=== PATIENT | male | born 1960 | race Caucasian/White ===

== ENCOUNTER 2018-04-21 17:22 | Inpatient (IN) | payer OTHER, MEDICARE ==
[~2018-04-21] VITALS: Ht 177.8 cm; Wt 75.0 kg
[2018-04-21 17:51] VITALS: BP 186/102; PULSE 85; RESP 18; TEMP 99; O2SAT 97
[2018-04-21] MEDS ORDERED: oxyCODONE/ACETAMINOPHEN 5 MG/325 MG TAB PO ONE (18:00)
--- NOTE | 2018-04-21 18:16 | PD ---
HPI Chief Complaint: Psychiatric Symptoms Time Seen by Provider: 17:56 Travel History International Travel<30 days: No Contact w/Intl Traveler<30days: No Traveled to known affect area: No History of Present Illness HPI Patient is a 58-year-old male presenting to the emergency department under Veloz act for psychiatric evaluation. Per the Veloz act report patient called his doctor's office and threatened suicide by shooting himself because he was frustrated he was not getting his medications. The Veloz act reported controlled substance however patient was requesting gabapentin. He states he had waited 2 days prior for the medication to be refilled. He denies any suicidal homicidal ideations. He states he was just frustrated and stated it. He does have access to firearms. He denies any psychiatric history. He does have a history of chronic neck and back pain. Symptom onset was gradual, symptoms are moderate in nature. PFSH Past Medical History Asthma: No Musculoskeletal: Yes (Chronic neck and back pain) Social History Tobacco Use: Yes Allergies-Medications (Allergen,Severity, Reaction): Coded Allergies: No Known Allergies (Verified Allergy, Unknown, 07/25/03) Uncoded Allergies: NKA (Allergy, Unknown, 07/26/03) Review of Systems Except as stated in HPI: all other systems reviewed are Neg Psychiatric: Positive: Suicidal Ideations Physical Exam Narrative GENERAL: Thin, well-developed, alert elderly male. Presenting in no acute distress. SKIN: Warm and dry. HEAD: Atraumatic. Normocephalic. EYES: Pupils equal and round. No scleral icterus. No injection or drainage. ENT: No nasal bleeding or discharge. Mucous membranes pink and moist. NECK: Trachea midline. No JVD. CARDIOVASCULAR: Regular rate and rhythm. RESPIRATORY: No accessory muscle use. Clear to auscultation. Breath sounds equal bilaterally. GASTROINTESTINAL: Abdomen soft, non-tender, nondistended. Hepatic and splenic margins not palpable. MUSCULOSKELETAL: Extremities without clubbing, cyanosis, or edema. No obvious deformities. NEUROLOGICAL: Awake and alert. No obvious cranial nerve deficits. Motor grossly within normal limits. Five out of 5 muscle strength in the arms and legs. Normal speech. PSYCHIATRIC: Appropriate mood and affect; insight and judgment normal. Data Data Last Documented VS Vital Signs Date Time Temp Pulse Resp B/P (MAP) Pulse Ox O2 Delivery O2 Flow Rate FiO2 04/21/18 17:51 99.0 85 18 186/102 (130) 97 Orders Orders Complete Blood Count With Diff (04/21/18 17:56) Comprehensive Metabolic Panel (04/21/18 17:56) Thyroid Stimulating Hormone (04/21/18 17:56) Urinalysis - C+S If Indicated (04/21/18 17:56) Psych Screen (04/21/18 17:56) Drug Screen, Random Urine (04/21/18 17:56) Alcohol (Ethanol) (04/21/18 17:56) Oxycodone-Acetamin 5-325 Mg (Percocet (04/21/18 18:00) Labs Laboratory Tests Test 04/21/18 17:58 White Blood Count 6.4 TH/MM3 Red Blood Count 5.11 MIL/MM3 Hemoglobin 15.1 GM/DL Hematocrit 45.0 % Mean Corpuscular Volume 88.0 FL Mean Corpuscular Hemoglobin 29.5 PG Mean Corpuscular Hemoglobin Concent 33.5 % Red Cell Distribution Width 13.8 % Platelet Count 213 TH/MM3 Mean Platelet Volume 8.4 FL Neutrophils (%) (Auto) 65.4 % Lymphocytes (%) (Auto) 26.2 % Monocytes (%) (Auto) 6.8 % Eosinophils (%) (Auto) 1.0 % Basophils (%) (Auto) 0.6 % Neutrophils # (Auto) 4.2 TH/MM3 Lymphocytes # (Auto) 1.7 TH/MM3 Monocytes # (Auto) 0.4 TH/MM3 Eosinophils # (Auto) 0.1 TH/MM3 Basophils # (Auto) 0.0 TH/MM3 CBC Comment DIFF FINAL Differential Comment Blood Urea Nitrogen 11 MG/DL Creatinine 1.28 MG/DL Random Glucose 110 MG/DL Total Protein 8.1 GM/DL Albumin 4.1 GM/DL Calcium Level 9.6 MG/DL Alkaline Phosphatase 122 U/L Aspartate Amino Transf (AST/SGOT) 26 U/L Alanine Aminotransferase (ALT/SGPT) 41 U/L Total Bilirubin 0.6 MG/DL Sodium Level 140 MEQ/L Potassium Level 4.0 MEQ/L Chloride Level 105 MEQ/L Carbon Dioxide Level 23.6 MEQ/L Anion Gap 11 MEQ/L Estimat Glomerular Filtration Rate 57 ML/MIN Thyroid Stimulating Hormone 3rd Gen 1.230 uIU/ML Ethyl Alcohol Level LESS THAN 3 MG/DL MDM Medical Decision Making Medical Screen Exam Complete: Yes Emergency Medical Condition: Yes Interpretation(s) Laboratory Tests Test 04/21/18 17:58 White Blood Count 6.4 TH/MM3 Red Blood Count 5.11 MIL/MM3 Hemoglobin 15.1 GM/DL Hematocrit 45.0 % Mean Corpuscular Volume 88.0 FL Mean Corpuscular Hemoglobin 29.5 PG Mean Corpuscular Hemoglobin Concent 33.5 % Red Cell Distribution Width 13.8 % Platelet Count 213 TH/MM3 Mean Platelet Volume 8.4 FL Neutrophils (%) (Auto) 65.4 % Lymphocytes (%) (Auto) 26.2 % Monocytes (%) (Auto) 6.8 % Eosinophils (%) (Auto) 1.0 % Basophils (%) (Auto) 0.6 % Neutrophils # (Auto) 4.2 TH/MM3 Lymphocytes # (Auto) 1.7 TH/MM3 Monocytes # (Auto) 0.4 TH/MM3 Eosinophils # (Auto) 0.1 TH/MM3 Basophils # (Auto) 0.0 TH/MM3 CBC Comment DIFF FINAL Differential Comment Blood Urea Nitrogen 11 MG/DL Creatinine 1.28 MG/DL Random Glucose 110 MG/DL Total Protein 8.1 GM/DL Albumin 4.1 GM/DL Calcium Level 9.6 MG/DL Alkaline Phosphatase 122 U/L Aspartate Amino Transf (AST/SGOT) 26 U/L Alanine Aminotransferase (ALT/SGPT) 41 U/L Total Bilirubin 0.6 MG/DL Sodium Level 140 MEQ/L Potassium Level 4.0 MEQ/L Chloride Level 105 MEQ/L Carbon Dioxide Level 23.6 MEQ/L Anion Gap 11 MEQ/L Estimat Glomerular Filtration Rate 57 ML/MIN Thyroid Stimulating Hormone 3rd Gen 1.230 uIU/ML Ethyl Alcohol Level LESS THAN 3 MG/DL Vital Signs Date Time Temp Pulse Resp B/P (MAP) Pulse Ox O2 Delivery O2 Flow Rate FiO2 04/21/18 17:51 99.0 85 18 186/102 (130) 97 Differential Diagnosis Mood disorder versus substance abuse versus psychosis versus metabolic abnormality versus other Narrative Course Patient is a 58-year-old male presenting under Veloz act for psychiatric evaluation secondary to making suicidal as well as homicidal statements to his doctor's office. Mental health screening discussed with the patient. Psychiatric screen ordered. Patient's vital signs are stable, he will be given a Percocet for his chronic pain. Labs reviewed, no acute findings identified. Patient is medically clear for psychiatric evaluation. Diagnosis Primary Impression: Medical clearance for psychiatric admission Condition: Stable Amanda Mazariegos Apr 21, 2018 18:16
[2018-04-21 18:36] LABS: AUTOMATED NEUTROPHIL # 4.2 TH/MM3 (1.8-7.7); BASOPHIL % 0.6 % (0.0-2.0); EOSINOPHIL # 0.1 TH/MM3 (0-0.4); HEMOGLOBIN 15.1 GM/DL (13.0-17.0); LYMPH % 26.2 % (9.0-44.0); LYMPHOCYTE # 1.7 TH/MM3 (1.0-4.8); MEAN CORPUSCULAR HEMOGLOBIN 29.5 PG (27.0-34.0); MEAN CORPUSCULAR HGB CONC 33.5 % (32.0-36.0); MEAN PLATELET VOLUME 8.4 FL (7.0-11.0); MONO % 6.8 % (0.0-8.0); MONOCYTE # 0.4 TH/MM3 (0-0.9); NEUT % 65.4 % (16.0-70.0); PLATELET COUNT 213 TH/MM3 (150-450); RED BLOOD COUNT 5.11 MIL/MM3 (4.50-5.90); RED CELL DISTRIBUTION WIDTH 13.8 % (11.6-17.2); WHITE BLOOD COUNT 6.4 TH/MM3 (4.0-11.0)
[2018-04-21 18:50] LABS: ALBUMIN 4.1 GM/DL (3.4-5.0); AST (GOT) 26 U/L (15-37); BICARBONATE 23.6 MEQ/L (21.0-32.0); BLOOD UREA NITROGEN 11 MG/DL (7-18); CALCIUM 9.6 MG/DL (8.5-10.1); CHLORIDE 105 MEQ/L (98-107); CREATININE 1.28 MG/DL (0.60-1.30); GLOMERULAR FILTRATION RATE 57 ML/MIN (>89); GLUCOSE,RANDOM 110 MG/DL (74-106); SODIUM (NA) 140 MEQ/L (136-145)
[2018-04-21 18:51] LABS: ALT (GPT) 41 U/L (12-78)
[2018-04-21 19:01] LABS: ALKALINE PHOSPHATASE 122 U/L (45-117); TOTAL BILIRUBIN ADULT 0.6 MG/DL (0.2-1.0); TOTAL PROTEIN 8.1 GM/DL (6.4-8.2)
[2018-04-21] MEDS ORDERED: OXYC15TA PO (19:06)
[2018-04-21] MEDS ORDERED: GABA400C5 PO (19:06)
[2018-04-21] MEDS ORDERED: LISI-515 PO (19:06)
[2018-04-21 22:40] LABS: BILIRUBIN, URINE NEG (NEG); BLOOD, URINE TRACE (NEG); GLUCOSE,URINE NEG (NEG); KETONE, URINE NEG (NEG); NITRITE,URINE NEG (NEG); URINE COLOR LIGHT-YELLOW (YELLW/STRAW); URINE LEUKOCYTE ESTERASE NEG (NEG)
[2018-04-22 00:55] VITALS: BP 137/79; PULSE 58; RESP 18; TEMP 98; O2SAT 96
[2018-04-22] MEDS ORDERED: ACETAMINOPHEN 325 MG TAB PO ONE (01:00)
[2018-04-22 06:25] VITALS: BP_SYST 116; BP_SYST 130; BP_DIAS 68; BP_DIAS 81; PULSE 56; PULSE 82; RESP 16; RESP 18; TEMP 97.3; TEMP 98; O2SAT 99
[2018-04-22] MEDS: GABAPENTIN 400 MG CAP PO SCH ×4 (08:44→21:44)
[2018-04-22] MEDS ORDERED: GABAPENTIN 400 MG CAP PO SCH (08:45)
[2018-04-22 11:00] VITALS: BP 128/75; PULSE 62; RESP 16; TEMP 98.7; O2SAT 97
[2018-04-22] MEDS ORDERED: ACETAMINOPHEN 325 MG TAB PO PRN (15:00)
[2018-04-22] MEDS ORDERED: MAGNESIUM HYDROXIDE SUSP 30 ML CUP PO PRN (15:00)
[2018-04-22] MEDS ORDERED: ALUMINUM/MAGNESIUM/SIMETH 30 ML CUP PO PRN (15:00)
--- NOTE | 2018-04-22 15:03 | PD ---
History of Present Illness Chief Complaint: Psychiatric Symptoms Time Seen by Provider: 14:25 Travel History International Travel<30 Days: No Contact w/Intl Traveler<30days: No Known affected area: No Legal Status Legal Status: Veloz Act Veloz Act Signed By: DR SHANEL CARRINGTON History of Present Illness: History of Present Illness HPI Patient is a 58-year-old, male with history of bipolar disorder, substance use disorder, antisocial personality disorder, presenting to the emergency department under Veloz act initiated by Dr. Shanel Friedman. The Veloz act report states" patient is continuously requesting controlled substances and stated he will kill himself he he if he does not get them or take a gun and shoot someone." It appears the patient called his doctor's office and made the above threatens when he was unable to get his medications refilled. As per ED documentation the patient does have access to firearms. The patient has been monitored here in secure environment. The patient has been irritable and restless. He was provided pain medication as well as Neurontin by ED provider. EMR is reviewed. The patient has had psychiatric admissions at [facility] dating back to 2001. He was last admitted in May [address] Farias and Dr. Griffiths's notes. Current toxicology is positive for cocaine. Patient is seen in [facility]. His mood is irritable, easily agitated. He states he is 'sad and depressed 'because he is not able to get his pain medication. He is demanding on getting OxyContin and becomes agitated when he is informed that he will not be able to get that prescription here in the ED. He then states do whatever the hell you want to do. I just will bash my head against the wall. I will just stay in this room and I am not answer any more questions. I'm not going to eat , not going do nothing. Just leave me the fuck alone". Patient also begins to pace in the hallway and states that he is going to try to leave the hospital anyway he can. I made several attempts to discuss matters further with the patient but he remained agitated and uncooperative. PFSH Past Medical History Asthma: No Depression: Yes Diminished Hearing: No Hypertension: Yes Musculoskeletal: Yes (Chronic neck and back pain) ?: Not Psychiatric History Psychiatric History Hx Psychiatric Treatment: REPORTS THAT IT HAS BEEN A LONG TIME SINCE HE HAS BEEN HOSPITALIZED FOR PSYCHIATRIC PROBLEMS. HE WAS HERE IN 2001 AND 2003. HAS BEEN DIAGNOSED WITH BIPOLAR disorder. He states that he has been receiving Neurontin from Dr. Pepper for mood swings. History of Inpatient Treatment: Yes Guns or firearms in home: Yes Social History Patient refuses to provide any information. He indicated to the nurses that he is currently living with his mother. Hx Alcohol Use: No Hx Tobacco Use: Yes Hx Substance Use: Yes Substance Use Type: Cocaine (Positive toxicology but denies current use) Other Substances Used: HAS BEEN USING DRUGS SINCE AGE 14 (BOTH LEGAL AND NONLEGAL) Hx of Substance Use Treatment: No Family Psychiatric History Unknown Allergies-Medications (Allergen,Severity, Reaction): Coded Allergies: No Known Allergies (Verified Allergy, Unknown, 07/25/03) Uncoded Allergies: NKA (Allergy, Unknown, 07/26/03) Reported Meds & Prescriptions Reported Meds & Active Scripts Active Reported Oxycodone (Oxycodone HCl) 15 Mg Tab 15 Mg PO Q6HR Lisinopril 20 Mg Tab 20 Mg PO DAILY Gabapentin 400 Mg Cap 400 Cap PO Q8HR Review of Systems Musculoskeletal: COMPLAINS OF: Stiffness, Back pain, Neck pain Psychiatric: COMPLAINS OF: Mood changes, Agitation, Suicidal Ideation, Homicidal Ideation Mental Status Examination Appearance: Appropriate (In [facility]) Consciousness: Alert Orientation: x4 Motor Activity: Normal gait Speech: Rapid Language: Adequate Fund of Knowledge: Adequate Attention and Concentration: Easily Distracted Memory: Unremarkable Mood: Angry, Irritable, Other (Easily agitated) Affect: Irritable, Other (Angry and hostile) Thought Process & Associations: Intact, Logical, Goal directed Thought Content: Appropriate Hallucination Type: None Delusion Type: None Suicidal Ideation: Yes Suicidal Plan: Yes (Shoot himself with a gun) Suicidal Intention: No Homicidal Ideation: Yes (Verbalized intent to shoot others due to feeling frustrated) Homicidal Plan: Yes Homicidal Intention: No Insight: Poor Judgment: Impulsive MDM Medical Decision Making Medical Record Reviewed: Yes Assessment/Plan Patient is a 58-year-old, male with history of bipolar disorder, substance use disorder, antisocial personality disorder, presenting to the emergency department under Veloz act initiated by Dr. Shanel Friedman. The Veloz act report states" patient is continuously requesting controlled substances and stated he will kill himself he he if he does not get them or take a gun and shoot someone." Patient has been easily agitated, irritable and restless while on the unit. He has been requesting and demanding opioids. He has been medicated per ED provider. The patient threatens that he is going to harm himself by bashing his head against the wall if he does not get his pain medication. He also threatens that he is going to try and escape from [facility]. He also states that he is going to refuse any food and any care. He is uncooperative with evaluation process. Due to patient's level of agitation and threats to harm self or others he will be admitted to inpatient psychiatric unit for further evaluation, for safety, and for stabilization. Orders Orders Complete Blood Count With Diff (04/21/18 17:56) Comprehensive Metabolic Panel (04/21/18 17:56) Thyroid Stimulating Hormone (04/21/18 17:56) Urinalysis - C+S If Indicated (04/21/18 17:56) Psych Screen (04/21/18 17:56) Drug Screen, Random Urine (04/21/18 17:56) Alcohol (Ethanol) (04/21/18 17:56) Oxycodone-Acetamin 5-325 Mg (Percocet (04/21/18 18:00) Acetaminophen (Tylenol) (04/22/18 01:00) Diet Regular Basic (04/22/18 Breakfast) Oxycodone (Roxicodone) (04/22/18 08:30) Gabapentin (Neurontin) (04/22/18 09:00) Diet Regular Basic (04/22/18 Lunch) Results Vital Signs Date Time Temp Pulse Resp B/P (MAP) Pulse Ox O2 Delivery O2 Flow Rate FiO2 04/22/18 11:00 98.7 62 16 128/75 (92) 97 Room Air 04/22/18 06:25 97.3 56 16 130/81 (97) 99 Room Air 04/22/18 00:55 98.0 58 18 137/79 (98) 96 Room Air 6/5/18 17:51 99.0 85 18 186/102 (130) 97 Laboratory Tests Test 04/21/18 17:58 04/21/18 22:05 White Blood Count 6.4 Red Blood Count 5.11 Hemoglobin 15.1 Hematocrit 45.0 Mean Corpuscular Volume 88.0 Mean Corpuscular Hemoglobin 29.5 Mean Corpuscular Hemoglobin Concent 33.5 Red Cell Distribution Width 13.8 Platelet Count 213 Mean Platelet Volume 8.4 Neutrophils (%) (Auto) 65.4 Lymphocytes (%) (Auto) 26.2 Monocytes (%) (Auto) 6.8 Eosinophils (%) (Auto) 1.0 Basophils (%) (Auto) 0.6 Neutrophils # (Auto) 4.2 Lymphocytes # (Auto) 1.7 Monocytes # (Auto) 0.4 Eosinophils # (Auto) 0.1 Basophils # (Auto) 0.0 CBC Comment DIFF FINAL Differential Comment Blood Urea Nitrogen 11 Creatinine 1.28 Random Glucose 110 Total Protein 8.1 Albumin 4.1 Calcium Level 9.6 Alkaline Phosphatase 122 Aspartate Amino Transf (AST/SGOT) 26 Alanine Aminotransferase (ALT/SGPT) 41 Total Bilirubin 0.6 Sodium Level 140 Potassium Level 4.0 Chloride Level 105 Carbon Dioxide Level 23.6 Anion Gap 11 Estimat Glomerular Filtration Rate 57 Thyroid Stimulating Hormone 3rd Gen 1.230 Ethyl Alcohol Level LESS THAN 3 Urine Color LIGHT-YELLOW Urine Turbidity CLEAR Urine pH 6.0 Urine Specific Early 1.006 Urine Protein NEG Urine Glucose (UA) NEG Urine Ketones NEG Urine Occult Blood TRACE Urine Nitrite NEG Urine Bilirubin NEG Urine Urobilinogen LESS THAN 2.0 Urine Leukocyte Esterase NEG Urine WBC LESS THAN 1 Microscopic Urinalysis Comment CULT NOT INDICATED Urine Opiates Screen NEG Urine Barbiturates Screen NEG Urine Amphetamines Screen NEG Urine Benzodiazepines Screen NEG Urine Cocaine Screen POS Urine Cannabinoids Screen NEG Diagnosis Primary Impression: Medical clearance for psychiatric admission Additional Impressions: Bipolar disorder Cocaine abuse Admitting Information Admitting Physician Requests: Admit Condition: Stable Problem Qualifiers Additional Impressions: Bipolar disorder Qualified Codes: F31.62 - Bipolar disorder, current episode mixed, moderate Edge,Rochelle Marita DEY Apr 22, 2018 15:02
[2018-04-22] MEDS ORDERED: diphenhydrAMINE HCL 50 MG CAP PO PRN (20:15)
[2018-04-22] MEDS: IBUPROFEN 600 MG TAB PO PRN ×2 (21:46→22:46)
[2018-04-23] MEDS: GABAPENTIN 400 MG CAP PO SCH ×2 (05:43→09:00)
[2018-04-23 06:03] VITALS: BP 149/66; PULSE 59; RESP 18; TEMP 97.4; O2SAT 95
[2018-04-23] MEDS ORDERED: LISINOPRIL 20 MG TAB PO SCH (09:00)
--- NOTE | 2018-04-23 09:27 | HHI.HP ---
Provisional Diagnosis Admission Date Apr 22, 2018 at 15:14 [place]. Adjustment disorder with mixed disturbances of emotion and conduct, history of bipolar disorder, cocaine abuse Certification of Person's Competence To Provide Express and Informed Consent I have personally examined Petr Villarreal , a person being served at [facility] on, Apr 23, 2018 09:17. Express and informed consent means consent voluntarily given in writing, by a competent person, after sufficient explanation and disclosure of the subject matter involved to enable the person to make a knowing and willful decision without any element of force, fraud, deceit, duress, or other form of constraint or coercion. This person is 18 years of age or older, is not now known to be incompetent to consent to treatment with a guardian advocate, and does not have a health care surrogate or proxy currently making medical treatment decisions. I have found this person to be one of the following: [xxx] Competent to provide express and informed consent, as defined above, for voluntary admission to this facility and is competent to provide express and informed consent for treatment. He/she has the consistent capacity to make well reasoned, willful, and knowing decisions concerning his or her medical or mental health treatment. The person fully and consistently understands the purpose of the admission for examination/placement and is fully capable of personally exercising all rights [place] Incompetent to provide express and informed consent to voluntary admission, and this is incompetent to provide express and informed consent to treatment. The person must be transferred to involuntary status and a petition for a guardian advocate filed with the Circuit Court. [] Refusing to provide express and informed consent to voluntary admission but is competent to provide express and informed consent for treatment. The person must be discharged or transferred to involuntary status. Form shall be completed within 24 hours of a person's arrival at the receiving facility and filed in the clinical record of each person: 1. Admitted on a voluntary basis 2. Permitted to provide express and informed consent to his/her own treatment 3. Allowed to transfer from involuntary to voluntary status 4. Prior to permitting a person to consent to his or her own treatment after having been previously found incompetent to consent to treatment. History of Present Illness Capacity: Has Capacity HPI Patient is a 58-year-old white male who comes here under a Veloz act signed by a Dr. Mariajose Thompson dated 04/21/2018 that document reviewed stating patient is continuously requesting controlled substances he stated he will kill himself if he does not get them or take a gun and shoot someone. Patient seen screen in the ED urine toxicology positive for cocaine. Patient admitted to the hospital patient seen on the 2500 unit. Of interest I cared for this patient 05/29/2004 through 06/09/2004 at that time he is also positive for cocaine diagnosis of bipolar disorder cocaine abuse and antisocial personality disorder. He was referred through [facility]. It appears patient went to his primary care doctor's office yesterday being out of his medications and requesting his lisinopril and his Neurontin. Dr. romero, get this until he had blood tests done leave the patient to get out of control leading to all the subsequent events. Patient seen today laying in his bed nurse psebastian and counselor glenna present throughout session patient did not remember me from her prior contact 14 years ago he was initially irritable and ornery making vague amorphous statements related to suicidality homicidality. However he calm and then acknowledges that he was just upset with his physician for not giving him the drugs he wanted. He said he realizes he needs to have a blood test next week and he will get his prescriptions. Though he feels he really needs his Neurontin and his lisinopril. He states if he gets these medications he will feel much better and able to tolerate the process he needs to go through. He does deny suicidality homicidality voices or visions. States his cocaine use is intermittent. States his last visit to [facility] for treatment for his bipolar disorder was over 7 or 8 months ago. Feels he can just see his primary care doctor at this time. At this time patient no longer meets Veloz criteria will lift [place] act allow patient to be discharged to himself he will be given a 10 day supply of Neurontin and lisinopril. She will follow up with primary care doctor, we will refer him back also to [facility] for mental health follow-up, also referred to [facility]. Patient is able contract to do no harm by the end of the session he was calm cooperative with me and even made a small joke Review of Systems Constitutional: DENIES: Diaphoretic episodes, Fatigue, Fever, Weight gain, Weight loss, Chills, Dizziness, Change in appetite, Night Sweats Endocrine: DENIES: Heat/cold intolerance, Polydipsia, Polyuria, Polyphagia Eyes: DENIES: Blurred vision, Diplopia, Eye inflammation, Eye pain, Vision loss , Photosensitivity, Double Vision Ears, nose, mouth, throat: DENIES: Tinnitus, Hearing loss, Vertigo, Nasal discharge, Oral lesions, Throat pain, Hoarseness, Ear Pain, Running Nose, Epistaxis, Sinus Pain, Toothache, Odynophagia Respiratory: DENIES: Apneas, Cough, Snoring, Wheezing, Hemoptysis, Sputum production, Shortness of breath Cardiovascular: DENIES: Chest pain, Palpitations, Syncope, Dyspnea on Exertion , PND, Lower Extremity Edema, Orthopnea, Claudication Gastrointestinal: DENIES: Abdominal pain, Black stools, Bloody stools, Constipation, Diarrhea, Nausea, Vomiting, Difficulty Swallowing, Anorexia Genitourinary: DENIES: Sexual dysfunction, Urinary frequency, Urinary incontinence, Urgency, Hematuria, Dysuria, Nocturia, Penile Discharge, Testicular Pain, Testicular Swelling Musculoskeletal: COMPLAINS OF: Back pain Integumentary: DENIES: Abnormal pigmentation, Nail changes, Pruritus, Rash Hematologic/lymphatic: DENIES: Bruising, Lymphadenopathy Immunologic/allergic: DENIES: Eczema, Urticaria Neurologic: DENIES: Abnormal gait, Headache, Localized weakness, Paresthesias, Seizures, Speech Problems, Tremor, Poor Balance Psychiatric: COMPLAINS OF: Mood changes, Agitation, DENIES: Anxiety, Confusion , Depression, Hallucinations, Suicidal Ideation, Homicidal Ideation, Delusions Past Psych History Psychological trauma history Patient denies Violence risk - others (6 mos) Low Violence risk - self (6 mos) Low Substance Abuse History Drugs/Alcohol past 12 months Patient active cocaine abuser Past Family Social History Coded Allergies: No Known Allergies (Verified Allergy, Unknown, 07/25/03) Uncoded Allergies: NKA (Allergy, Unknown, 07/26/03) Reported Medications Oxycodone (Oxycodone) 15 Mg Tab, 15 MG PO Q6HR for Pain Management, TAB 0 Refills 04/21/18 Lisinopril (Lisinopril) 20 Mg Tab, 20 MG PO DAILY, #30 TAB 0 Refills 18 Gabapentin (Gabapentin) 400 Mg Cap, 400 CAP PO Q8HR, #30 CAP 0 Refills 6/5/18 Current Medications Medications (Trade) Dose Ordered Sig/Corey Route Start Time Stop Time Status Last Admin (Neurontin) 400 mg TID PO 04/22/18 09:00 04/22/18 14:01 (Tylenol) 650 mg Q4H PRN PO 04/22/18 15:00 (Milk Of Magnesia Liq) 30 ml DAILY PRN PO 04/22/18 15:00 (Mag-Al Plus Susp Liq) 30 ml Q6H PRN PO 04/22/18 15:00 (Neurontin) 400 mg Q8HR PO 04/22/18 22:00 04/22/18 21:44 (Prinivil) 20 mg DAILY PO 04/23/18 09:00 (Motrin) 600 mg Q6H PRN PO 04/22/18 20:15 04/22/18 22:46 (Benadryl) 50 mg Q4H PRN PO 04/22/18 20:15 04/22/18 21:44 Family Psych History None known at this time Social History Patient lives with his mother Patient's Strengths (min. 2) Patient verbal able access healthcare Physical Exam Patient medically cleared in the ED at the present time patient resting in bed he is in no acute distress, no complaints of respiratory pain no complaints of abdominal pain no complaints of chest pain. Patient moving all 4 extremities without difficulty no abnormal motor movements noted Vital Signs Vital Signs Date Time Temp Pulse Resp B/P (MAP) Pulse Ox O2 Delivery O2 Flow Rate FiO2 04/23/18 06:03 97.4 59 18 149/66 (93) 95 04/22/18 11:00 Room Air I/O 04/23/18 04/23/18 04/24/18 08:00 16:00 00:00 Intake Total 240 ml Balance 240 ml Mental Status Examination Appearance: Appropriate (In [facility]) Consciousness: Alert Orientation: x4 Motor Activity: Normal gait Speech: Rapid Language: Adequate Fund of Knowledge: Adequate Attention and Concentration: Adequate (Fair) Memory: Unremarkable Mood: Irritable, Other (Euthymic to mildly irritable) Affect: Irritable, Other (Good range and intensity) Thought Process & Associations: Intact, Logical, Goal directed Thought Content: Appropriate Hallucination Type: None Delusion Type: None Suicidal Ideation: No (Denies at this time) Suicidal Plan: No (Denies at this time) Suicidal Intention: No Homicidal Ideation: No (Denies at this) Homicidal Plan: No (Denies at this time) Homicidal Intention: No Insight: Fair Judgment: Impulsive Assessment & Plan Problem List: (1) Adjustment disorder with mixed disturbance of emotions and conduct ICD Codes: F43.25 - Adjustment disorder with mixed disturbance of emotions and conduct (2) History of bipolar disorder ICD Codes: Z86.59 - Personal history of other mental and behavioral disorders (3) Cocaine abuse ICD Codes: F14.10 - Cocaine abuse, uncomplicated Status: Acute Assessment & Plan Estimated LOS: days this time patient does not meet Veloz criteria will lift Veloz act allow patient to be discharged to himself will be given a 10 day supply of Neurontin and lisinopril to follow up with his primary care doctor also for him to get his scheduled blood tests done prior to the doctor's appointment. We will also refer him back to [facility] act. Refer him also NA to perhaps get counseling related to his cocaine addiction he is able contract with us to do no harm he denies suicidality or homicidality voices or visions Discharge Planning See above to be discharged home Request HC Surrog/Guard Advoc?: No Akbar Griffiths MD Apr 23, 2018 09:27
[2018-04-23] MEDS ORDERED: GABA400C5 PO (09:30)
[2018-04-23] MEDS ORDERED: LISI-515 PO (09:30)
--- NOTE | 2018-04-23 09:33 | HHI.DS ---
Psychiatry Discharge Summary Inpatient Psychiatric care?: Yes Advance Directive: No Reason Not Provided: PT not willing to participate in assessment Mental Health AdvanceDirective: No Health Care Proxy: No Admission Admission Date Apr 22, 2018 at 15:14 Admission Diagnosis: (1) Adjustment disorder with mixed disturbance of emotions and conduct ICD Code: F43.25 - Adjustment disorder with mixed disturbance of emotions and conduct (2) Cocaine abuse ICD Code: F14.10 - Cocaine abuse, uncomplicated (3) History of bipolar disorder ICD Code: Z86.59 - Personal history of other mental and behavioral disorders Brief History Patient is a 58-year-old white male who comes here under a Veloz act signed by a Dr. Mariajose Thompson dated 04/21/2018 that document reviewed stating patient is continuously requesting controlled substances he stated he will kill himself if he does not get them or take a gun and shoot someone. Patient seen screen in the ED urine toxicology positive for cocaine. Patient admitted to the hospital patient seen on the 2500 unit. Of interest I cared for this patient 05/29/2004 through 06/09/2004 at that time he is also positive for cocaine diagnosis of bipolar disorder cocaine abuse and antisocial personality disorder. He was referred through [facility]. It appears patient went to his primary care doctor's office yesterday being out of his medications and requesting his lisinopril and his Neurontin. Dr. romero, get this until he had blood tests done leave the patient to get out of control leading to all the subsequent events. Patient seen today laying in his bed nurse kari and counselor glenna present throughout session patient did not remember me from her prior contact 14 years ago he was initially irritable and ornery making vague amorphous statements related to suicidality homicidality. However he calm and then acknowledges that he was just upset with his physician for not giving him the drugs he wanted. He said he realizes he needs to have a blood test next week and he will get his prescriptions. Though he feels he really needs his Neurontin and his lisinopril. He states if he gets these medications he will feel much better and able to tolerate the process he needs to go through. He does deny suicidality homicidality voices or visions. States his cocaine use is intermittent. States his last visit to [facility] for treatment for his bipolar disorder was over 7 or 8 months ago. Feels he can just see his primary care doctor at this time. At this time patient no longer meets Magdiel criteria will lift Magdiel chen allow patient to be discharged to himself he will be given a 10 day supply of Neurontin and lisinopril. She will follow up with primary care doctor, we will refer him back also to [facility] for mental health follow-up, also referred to [facility]. Patient is able contract to do no harm by the end of the session he was calm cooperative with me and even made a small joke Tobacco Use In Past 30 Days: 5 or More Cigarettes/Day Alcohol Use: Never Hospital Course See above note dictated under brief history. Patient denies suicidality homicidality voice or visions. It appears she over reacted to them made threats after being refused prescriptions by his primary physician without him getting appropriate labs. He minimizes his continued cocaine use. There are recorded contacts with us going back to 2003 with cocaine use. At this time he no longer meets Magdiel criteria will lift Magdiel chen will be given a 10 day supply of lisinopril and Neurontin he should get his blood work drawn soon in follow-up next week with his primary care physician. Also will get referral to [facility] for further assessment was mental health issues and referral to [facility] Results Blood Pressure 149 / 66 Vital Signs Date Time Temp Pulse Resp B/P (MAP) Pulse Ox O2 Delivery O2 Flow Rate FiO2 04/23/18 06:03 97.4 59 18 149/66 (93) 95 04/22/18 11:00 Room Air Laboratory Tests Test 04/21/18 17:58 04/21/18 22:05 Random Glucose 110 MG/DL (74-106) Alkaline Phosphatase 122 U/L (45-117) Estimat Glomerular Filtration Rate 57 ML/MIN (>89) Urine Occult Blood TRACE (NEG) Urine Cocaine Screen POS (NEG) Summary of Procedures None done Pending results at discharge: No Medications # of Antipsychotic meds at D/C: 0 Approp Antipsych med options 1 - Minimum of three failed multiple trials of monotherapy. 2 - Documented plan to taper to monotherapy due to previous use of multiple meds OR cross-taper in progress at D/C. 3 - Documentation of augmentation of Clozapine. 4 - Justification other than those listed in allowable values 1-3, document here : Discharge Discharge Date: Apr 23, 2018 Discharge Diagnosis: (1) History of bipolar disorder Diagnosis: Secondary ICD Code: Z86.59 - Personal history of other mental and behavioral disorders (2) Adjustment disorder with mixed disturbance of emotions and conduct Diagnosis: Principal ICD Code: F43.25 - Adjustment disorder with mixed disturbance of emotions and conduct (3) Cocaine abuse Diagnosis: Secondary (Also follow-up with primary care physician and get scheduled lab tests done) ICD Code: F14.10 - Cocaine abuse, uncomplicated Status: Acute Pt Condition on Discharge: Stable Discharge Disposition: Discharge Home Discharge Instructions Diet Instructions: As Tolerated, No Restrictions Activities you can perform: Regular-No Restrictions Scheduled Appointment: [facility] Discharge Time > 30 minutes Mental Status Examination Appearance: Appropriate (In [facility]) Consciousness: Alert Orientation: x4 Motor Activity: Normal gait Speech: Rapid Language: Adequate Fund of Knowledge: Adequate Attention and Concentration: Adequate (Fair) Memory: Unremarkable Mood: Irritable, Other (Euthymic to mildly irritable) Affect: Irritable, Other (Good range and intensity) Thought Process & Associations: Intact, Logical, Goal directed Thought Content: Appropriate Hallucination Type: None Delusion Type: None Suicidal Ideation: No (Denies at this time) Suicidal Plan: No (Denies at this time) Suicidal Intention: No Homicidal Ideation: No (Denies at this) Homicidal Plan: No (Denies at this time) Homicidal Intention: No Insight: Fair Judgment: Impulsive Discharge/Advance Care Plan Health Problems: (1) Adjustment disorder with mixed disturbance of emotions and conduct (2) History of bipolar disorder (3) Cocaine abuse Goals to promote your health * To prevent worsening of your condition and complications * To maintain your health at the optimal level Directions to meet your goals Take your medications as prescribed Follow your dietary instruction Follow activity as directed Keep your appointments as scheduled Take your immunizations and boosters as scheduled If your symptoms worsen call your PCP, if no PCP go to Urgent Care Center or Emergency Room For 09/06 questions related to your inpatient stay or results of tests pending at discharge, please contact Dr. Akbar Griffiths at Smoking is Dangerous to Your Health. Avoid second hand smoking Akbar Griffiths MD Apr 23, 2018 09:33
== END 2018-04-23 10:00 | disposition home or self-care (01) | DRG 882 ==
LOC: NEDAMB 17:22 → NEDA 04-22 15:14 → H250 04-22 16:10
PROVIDERS: ADMIT Psychiatry & Neurology Psychiatry; ATTEND Psychiatry & Neurology Psychiatry
DX: F43.25 Adjustment disorder with mixed disturbance of emotions and conduct (principal); I10 Essential (primary) hypertension; F31.9 Bipolar disorder, unspecified; F17.210 Nicotine dependence, cigarettes, uncomplicated; F60.2 Antisocial personality disorder; G89.29 Other chronic pain; M54.2 Cervicalgia; M54.9 Dorsalgia, unspecified; F14.10 Cocaine abuse, uncomplicated
CPT/HCPCS: 80053; 80307; 81001; 84443; 85025; Q0163